=== PATIENT | female | born 1970 | race Caucasian/White ===

== ENCOUNTER 2019-06-03 | Emergency (ER) | payer MEDICAID ==
[~2019-06-03] MED LIST: NO HOME MEDS; PREVACID30 M3 PO
[2019-06-03] MEDS ORDERED: OMEPRAZOLE20 MG PO (09:28)
[2019-06-03] MEDS ORDERED: GABAPENTIN800 MG PO (09:28)
[2019-06-03] MEDS ORDERED: BACLOFEN20 MG PO (09:29)
[2019-06-03] MEDS ORDERED: MOTRIN800 MG PO (09:30)
[2019-06-08] MEDS ORDERED: LISINOP/HCTZ1 TA1 PO (07:56)
[2019-06-08] MEDS ORDERED: TRAMADOL HCL50 MG PO (09:43)
[2019-07-06] MEDS ORDERED: TRAMADOL HCL50 MG PO ×2 (08:33→08:35)
[2019-11-02] MEDS ORDERED: LOSARTAN POTAS100 MG PO (09:57)
[2019-11-02] MEDS ORDERED: TRAMADOL HCL50 MG PO (10:38)
== END 2019-06-03 11:56 | disposition home or self-care (01) ==
DX: M54.5 Low back pain (principal); M79.662 Pain in left lower leg; I10 Essential (primary) hypertension; F17.210 Nicotine dependence, cigarettes, uncomplicated

== ENCOUNTER 2019-06-23 | Day surgery (SDC) | payer MEDICAID ==
[~2019-06-23] MED LIST changes: +BACLOFEN20 MG PO; +GABAPENTIN800 MG PO; +LISINOP/HCTZ1 TA1 PO; +MOTRIN800 MG PO; +OMEPRAZOLE20 MG PO; +TRAMADOL HCL50 MG PO
[2019-07-06] MEDS ORDERED: TRAMADOL HCL50 MG PO ×2 (08:33→08:35)
[2019-11-02] MEDS ORDERED: LOSARTAN POTAS100 MG PO (09:57)
[2019-11-02] MEDS ORDERED: TRAMADOL HCL50 MG PO (10:38)
== END 2019-06-23 11:20 | disposition home or self-care (01) ==
DX: M54.5 Low back pain (principal); M46.1 Sacroiliitis, not elsewhere classified

== ENCOUNTER 2020-11-01 07:12 | Day surgery (SDC) | payer MEDICAID ==
[~2020-11-01 07:12] MED LIST changes: +FENOFIBRATE145 MG PO; +HYDROCHLOROTH12.5 M1 PO; +LIPITOR20 M1 PO; +LOSARTAN POTAS100 MG PO
[2020-11-01 11:14] VITALS: BP 114/70
== END 2020-11-02 09:25 | disposition home or self-care (01) ==
LOC: ORM 07:12
PROVIDERS: ATTEND Anesthesiology Pain Medicine
DX: M54.16 Radiculopathy, lumbar region (principal)
CPT/HCPCS: Q9967

== ENCOUNTER 2021-01-10 07:05 | Day surgery (SDC) | payer MEDICAID ==
[~2021-01-10] VITALS: Ht 162.6 cm; Wt 72.6 kg
[2021-01-10] MEDS ORDERED: TRAMADOL HCL50 MG PO (09:38)
[2021-01-10 10:29] VITALS: BP 127/71
== END 2021-01-10 10:16 | disposition home or self-care (01) ==
LOC: ORM 07:05
PROVIDERS: ATTEND Anesthesiology Pain Medicine
DX: M54.5 Low back pain (principal); M47.816 Spondylosis without myelopathy or radiculopathy, lumbar region

== ENCOUNTER 2022-08-27 18:48 | Observation (INO) | payer MEDICAID ==
[2022-08-27] VITALS (13 sets, daily range): BP systolic 84–129; BP diastolic 43–85
[~2022-08-27] VITALS: Ht 162.6 cm; Wt 72.5 kg
[2022-08-27 20:04] LABS: URINE BILIRUBIN - DIPSTICK NEGATIVE (NEGATIVE); URINE BLOOD DIPSTICK TRACE-LYSED (NEGATIVE); URINE COLOR YELLOW; URINE GLUCOSE - DIPSTICK NEGATIVE (NEGATIVE); URINE KETONE NEGATIVE (NEGATIVE); URINE LEUK ESTERASE TRACE (NEGATIVE); URINE PROTEIN - DIPSTICK 100 mg/dL (NEG-TRACE); URINE SPECIFIC GRAVITY 1.025; URINE UROBILINOGEN - DIPSTICK 0.2 E.U./dL (0.2)
[2022-08-27 20:07] LABS: BASO% 0.3 % (0-3); EOS% 0.9 % (0-8); HEMATOCRIT 33.5 % (37.0-47.0); HEMOGLOBIN 11.3 g/dl (12.0-16.0); IMMATURE GRANULOCYTES 0.3 % (0.0-5.0); LYMPH% 11.2 % (15-41); MEAN CORPUSCULAR HGB 31.3 pG CALC (26.0-32.0); MEAN CORPUSCULAR HGB CONC 33.7 g/dL CAL (32.0-36.0); MONO% 13.2 % (2-13); NEUT# 9.01 thou/uL (2.00-7.15); NEUT% 74.1 % (42-76); RED BLOOD COUNT 3.61 mill/uL (4.20-5.60); RED CELL DISTRI WIDTH 12.5 % (11.5-15.5)
[2022-08-27 20:08] LABS: MEAN CELL VOLUME 92.8 fL CALC (80.0-100.0)
[2022-08-27 20:11] LABS: URINE NITRITE - DIPSTICK NEGATIVE (Negative)
--- NOTE | 2022-08-27 20:16 | NUR ---
SEPSIS ALERT CALLED.
[2022-08-27 20:22] LABS: CREATININE 1.2 mg/dL (0.5-1.0); POTASSIUM 3.2 mmol/l (3.5-5.1); TOTAL PROTEIN 7.4 g/dL (6.3-8.2)
[2022-08-27 20:27] LABS: BILIRUBIN, TOTAL 0.1 mg/dL (0.02-1.3)
--- NOTE | 2022-08-27 21:12 | NUR ---
MEDICATED PER EMAR, NO DISTRESS NOTED. CALL CERVANTES IN REACH.
--- NOTE | 2022-08-27 22:00 | NUR ---
ASSUMED CARE. PT RESTING. IVF INFUSING. CALL TO DR. RADFORD FOR ADMISSION.
--- NOTE | 2022-08-27 22:38 | NUR ---
PT UP TO BR. C/O BASILAR HEADACHE. AT BEDSIDE.
--- NOTE | 2022-08-27 23:40 | NUR ---
REPORT TO FLOOR. EKG DONE. PT TRANSPORTED TO FLOOR VIA STETCHER. PT AMBULATORY TO BED UPON ARRIVAL TO FLOOR. NAD. PT PLACED ON TELEMETRY.
[2022-08-28 00:03] VITALS: BP 111/53
--- NOTE | 2022-08-28 01:17 | NUR ---
REPORT RECIVED FROM RN IN ED. PATIENT TRANSPORTED TO UNIT VIA STRETCHER AT APPROX 12:10PM. TRANSFERRED TO BED. AOX X 3. NO C/O OF PAIN AT THIS TIME. ORIENTED TO ROOM AND CALL LIGHT. INFORMED PT ON FALL SAFETY AND ANSWERED QUESTIONS. NO FURTHER QUESTIONS OR CONCERNS AT THIS TIME.
--- NOTE | 2022-08-28 01:24 | NUR ---
AMMEND TO PREVIOUS NURSING NOTE. PT RECIVED FROM ER VIA STRETCHER AT APPROX 12:10 AM
[2022-08-28 04:25] VITALS: BP 100/55
--- NOTE | 2022-08-28 04:29 | NUR ---
pt sleeping well. bed side rails up. bed locked. call light in reach. nsr on telemetry
[2022-08-28 06:06] VITALS: BP 123/69
--- NOTE | 2022-08-28 08:00 | NUR ---
PT IN BED WITH HOB UP AWAKE AND ALERT. PT IS UPSET AND CRYING, DOES NOT WANT TO BE HERE WANTS TO GO HOME. I COMFORTED PT AND DISCUSSED WITH HER THAT WHEN DR. PARKER MAKES HIS ROUNDS SHE CAN DISCUSS POSSIBLE D/C. PT HAS IV TO RIGHT HAND CLEAN AND INTACT WITH NS @ 100ML/HR. TELE ON WITH ALL LEADS ATTACHED. PT AMBULATES WELL FOR TOILETING NEEDS. PT HAS CALL LIGHT WITHIN REACH AND ALL SAFETY MEASURES IN PLACE.
[2022-08-28 08:56] VITALS: BP 139/89
[2022-08-28 10:56] VITALS: BP 134/83
[2022-08-28] MEDS ORDERED: BACTRIM DS1 TAB PO (11:35)
--- NOTE | 2022-08-28 12:00 | NUR ---
PT LAYING IN BED WITH HOB UP, AWAKE AND ALERT. PT HAS NO C/O PAIN AT THIS TIME. PT HAS NO CHANGE IN STATUS, WILL CONTINUE TO MONITOR PT.
--- NOTE | 2022-08-28 12:59 | NUR ---
Discharge instructions given. Patient verbalizes understanding of same. Discharged in stable condition via Ambulatory to Home with staff. All belongings sent with pt.
== END 2022-08-28 12:50 | disposition home or self-care (01) ==
LOC: ED 18:48 → MS2 22:07
PROVIDERS: Nurse Practitioner; ADMIT Internal Medicine; ATTEND Internal Medicine
DX: N39.0 Urinary tract infection, site not specified (principal); I10 Essential (primary) hypertension; E78.00 Pure hypercholesterolemia, unspecified; F41.9 Anxiety disorder, unspecified; F17.200 Nicotine dependence, unspecified, uncomplicated; Z20.822 Contact with and (suspected) exposure to COVID-19
CPT/HCPCS: G0378